=== PATIENT | female | born 1990 ===

== ENCOUNTER 2016-07-17 00:52 | Emergency (ER) | payer SELFPAY ==
[2016-07-17 01:25] VITALS: BP 134/77; PULSE 102; RESP 17; TEMP 98.7; O2SAT 100
--- NOTE | 2016-07-17 02:05 | ED PDOC ---
HPI: Psych/Substance Abuse Time Seen by Provider: 07/17/16 01:37 Chief Complaint (Nursing): Anxiety Chief Complaint (Provider): possible anxiety Additional History Per: Patient Additional Complaint(s): 26 y/o female presents for eval of possible anxiety attack. Patient states she took one Percocet 10/235mg and one Xanax 2mg; noted shortly after to feel dizzy , with difficulty breathing, and very "agitated". Patient thought she might have been overdosing and feels this made her anxiety worse. She states symptoms lasted approx 1 hour, and are starting to resolve. Denies headache, dizziness, nausea/vomiting, chest pain, shortness of breath, palpitations, abdominal pain, leg pain/swelling. Past Medical History Reviewed: Historical Data, Nursing Documentation, Vital Signs Vital Signs: Last Vital Signs Temp 98.7 F 07/17/16 01:20 Pulse 102 H 07/17/16 01:20 Resp 17 07/17/16 01:20 BP 134/77 07/17/16 01:20 Pulse Ox 100 07/17/16 01:20 - Medical History PMH: Anxiety - Family History Family History: States: Unknown Family Hx - Immunization History Hx Tetanus Toxoid Vaccination: No Hx Influenza Vaccination: No Hx Pneumococcal Vaccination: No - Home Medications Home Medications: Ambulatory Orders Medication Instructions Recorded Famotidine [Pepcid] 20 mg PO BID #10 tab 03/04/15 Nitrofurantoin Macrocrystals 1 cap PO BID #14 cap 06/09/15 [Macrobid] Ondansetron ODT [Zofran ODT] 1 odt PO BID PRN #10 odt 06/09/15 Acetaminophen with Codeine 1 each PO Q6 #10 tablet 07/22/15 [Tylenol with Codeine #3 Tablet] - Allergies Allergies/Adverse Reactions: Allergies Allergy/AdvReac Type Severity Reaction Status Date / Time No Known Allergies Allergy Verified 07/22/15 16:41 Review of Systems ROS Statement: Except As Marked, All Systems Reviewed And Found Negative Psych: Positive for: Anxiety Physical Exam - Reviewed Nursing Documentation Reviewed: Yes Vital Signs Reviewed: Yes - Physical Exam Appears: Positive for: Well, Non-toxic, No Acute Distress Head Exam: Positive for: ATRAUMATIC, NORMAL INSPECTION, NORMOCEPHALIC Skin: Positive for: Normal Color Eye Exam: Positive for: Normal appearance, EOMI, PERRL ENT: Positive for: Normal ENT Inspection Cardiovascular/Chest: Positive for: Regular Rate, Rhythm Respiratory: Positive for: Normal Breath Sounds Gastrointestinal/Abdominal: Positive for: Normal Exam Back: Positive for: Normal Inspection Extremity: Positive for: Normal ROM Neurologic/Psych: Positive for: Alert, Oriented - Laboratory Results Urine POC: Negative - ECG ECG: Positive for: Viewed By Me (reviewed by ED attending) ECG Rhythm: Positive for: Sinus Rhythm O2 Sat by Pulse Oximetry: 100 Pulse Ox Interpretation: Normal - Progress ED Course And Treament: ekg, accucheck Patient educated on findings, and dangers of polysubstance abuse. Advised follow up outpatient therapy/detox. Return to ED for worsening/concerning symptoms. Disposition - Clinical Impression Clinical Impression: Anxiety, Polysubstance abuse - Patient ED Disposition Is Patient to be Admitted: No Counseled Patient/Family Regarding: Studies Performed, Diagnosis, Need For Followup - Disposition Disposition: Routine/Home Disposition Time: 02:07 Condition: IMPROVED Instructions: Anxiety (ED), Polysubstance Abuse (ED)
--- NOTE | 2016-07-17 11:51 | CARD ---
APPROVED REPORT EKG Measurement Heart [id number] <Conclusion> Normal sinus rhythm Normal ECG
== END 2016-07-17 03:08 | disposition home or self-care (01) ==
LOC: H.ER 00:52
DX: F41.9 Anxiety disorder, unspecified (principal); F19.10 Other psychoactive substance abuse, uncomplicated